=== PATIENT | female | born 1940 | race Caucasian/White ===

== ENCOUNTER 2019-02-26 10:46 | Outpatient (CLI) | payer MEDICARE, SELFPAY ==
--- NOTE | 2019-02-26 | XR_ITS ---
WS: [id number] Thoracic spine, 3 views, 02/26/2019 Clinical Data: BACK PAIN ACUTE Comparison: Thoracic spine, 10/20/2015. Findings: No compression fractures are seen. The disc heights are normal. There is a slight dextroscoliosis of the midthoracic spine. There is an osteophytic spur on the left side of the inferior aspect of T11 and superior aspect of the left side of T12. XR/XR thoracic spine 3V* 72014 Impression: Minimal T11-T12 osteoarthritis.
== END 2019-02-26 10:47 | disposition home or self-care (01) ==
LOC: RADOUTREAD 12:29
PROVIDERS: Family Provider Family Medicine; Visit Provider Family Medicine
DX: M47.894 Other spondylosis, thoracic region (principal); M54.6 Pain in thoracic spine